=== PATIENT | female | born 1940 | race Caucasian/White ===

== ENCOUNTER 2018-02-02 00:15 | Day surgery (SDC) | payer MEDICARE ==
[~2018-02-02 00:15] MED LIST: Acyclovir400 MG PO; Aspirin EC81 MG PO; Bactrim Ds Tab1 EACH PO; CONESTTC VAG; Finacea50 GM TP; Flonase 0.05% N16 GM; GLUC500; METR500 PO; MUPI2TO TOP; NAPR220; OMEG1CAP30; OMEPRAZOLE MAGN20 MG PO; PROC5 PO; RALO60 PO; Rocephin 1g1 G/50 ML IV; STOOL SOFTENER1 EAC1; Triamcinolone A15 G3 TOP; Vitamin C100 M1; Vitamin D400 UNI1
[2018-02-02] MEDS ORDERED: VANC125 PO (11:21)
== END 2018-02-02 11:47 | disposition home or self-care (01) ==
LOC: ATC 00:15
DX: C91.00 Acute lymphoblastic leukemia not having achieved remission (principal)
CPT/HCPCS: 99211

== ENCOUNTER 2018-02-09 00:30 | Day surgery (SDC) | payer MEDICARE ==
[~2018-02-09 00:30] MED LIST changes: +VANC125 PO
== END 2018-02-09 11:08 | disposition home or self-care (01) ==
LOC: ATC 00:30
DX: C91.00 Acute lymphoblastic leukemia not having achieved remission (principal)
CPT/HCPCS: 99211

== ENCOUNTER 2018-02-16 00:07 | Day surgery (SDC) | payer MEDICARE | END 2018-02-16 10:43 | disposition home or self-care (01) | LOC: ATC 00:07 | DX: Z45.2 Encounter for adjustment and management of vascular access device (principal); C91.00 Acute lymphoblastic leukemia not having achieved remission | CPT/HCPCS: 99211 ==

== ENCOUNTER 2018-03-02 00:07 | Day surgery (SDC) | payer MEDICARE | END 2018-03-02 11:14 | disposition home or self-care (01) | LOC: ATC 00:07 | DX: C91.00 Acute lymphoblastic leukemia not having achieved remission (principal) | CPT/HCPCS: 99211 ==

== ENCOUNTER 2018-03-09 00:32 | Day surgery (SDC) | payer MEDICARE | END 2018-03-09 11:14 | disposition home or self-care (01) | LOC: ATC 00:32 | DX: C91.00 Acute lymphoblastic leukemia not having achieved remission (principal) | CPT/HCPCS: 99211 ==